=== PATIENT | female | born 1965 | race Caucasian/White ===

== ENCOUNTER 2021-04-11 01:04 | Emergency (ER) | payer SELFPAY ==
[~2021-04-11] VITALS: Ht 172.7 cm; Wt 74.9 kg
--- NOTE | 2021-04-11 03:00 | NUR ---
SHANNON RN COVERING FOR MIKA JENKINS. PT CAME IN WITH MULTIPLE COMPLAINTS OF ABD PAIN, NAUSEA/VOMITTING AND TOOTH PAIN. PATIENT HAD TO BE TOLD MULTIPLE TIMES TO REMOVE SHIRT AND PUT ON GOWN. PATIENT FALLS ASLEEP WHILE TALKING TO RN AND PROVIDER.
[2021-04-11 03:10] LABS: BASOPHILS % (AUTO) 1 % (0-1); EOSINOPHILS % (AUTO) 0 % (1-7); LYMPHOCYTES % (AUTO) 34 % (22-44); MEAN CORPUSCULAR HEMOGLOBIN 31.6 pg (27.0-34.8); MEAN CORPUSCULAR HGB CONC 33.8 g/dL (32.4-35.8); MEAN PLATELET VOLUME 7.5 fL (7.4-10.4); MONOCYTES % (AUTO) 11 % (2-9); NEUTROPHILS % (AUTO) 55 % (42-75); PLATELET COUNT 220 x10^3/uL (130-400); RED BLOOD COUNT 4.06 x10^6/uL (3.82-5.3); RED CELL DISTRIBUTION WIDTH 12.8 % (9.6-15.2)
[2021-04-11 03:11] LABS: MD NO
[2021-04-11 03:21] LABS: ALANINE AMINOTRANSFERASE 23 U/L (12-78); ALBUMIN 3.5 g/dL (3.4-5.0); ANION GAP 3 mmol/L (5-15); CALCIUM 8.5 mg/dL (8.5-10.1); CHLORIDE 109 mmol/L (98-107); CREATININE 0.77 mg/dL (0.55-1.02)
[2021-04-11 03:23] LABS: ALKALINE PHOSPHATASE 64 U/L (45-117); BILIRUBIN,TOTAL 0.2 mg/dL (0.2-1.0); TOTAL PROTEIN 6.4 g/dL (6.4-8.2)
[2021-04-11 03:49] LABS: MICROSCOPIC NOT IND
[2021-04-11 03:55] VITALS: BP 113/71
[2021-04-11 04:01] LABS: AMPHETAMINE SCREEN, URINE Negative (Negative); BARBITURATE SCREEN, URINE Negative (Negative); BENZODIAZEPINE SCREEN, URINE Negative (Negative); CANNABINOID SCREEN, URINE Negative (Negative); COCAINE SCREEN, URINE Negative (Negative); METHADONE SCREEN, URINE Negative (Negative); OPIATE SCREEN, URINE Negative (Negative)
== END 2021-04-11 04:36 | disposition home or self-care (01) ==
LOC: ED 04:30
DX: R11.2 Nausea with vomiting, unspecified (principal)
CPT/HCPCS: 36415; 80053; 80307; 81003; 83690; 85025; 99283